=== PATIENT | female | born 1995 | race African-American/Black ===

== ENCOUNTER 2019-02-06 19:43 | Emergency (ER) | payer MEDICAID ==
[~2019-02-06] VITALS: Ht 149.8 cm; Wt 90.7 kg
[~2019-02-06 19:43] MED LIST: MACROBID100 M1 PO; MOTRIN400 MG PO; NKHM; PRENATABS RX1 TAB PO; Zofran4 MG PO
[2019-02-06] MEDS ORDERED: ZYRTEC10 MG PO (22:20)
[2019-02-06] MEDS ORDERED: MUCINEX ER600 MG PO (22:20)
== END 2019-02-06 22:10 | disposition home or self-care (01) ==
LOC: ED 19:43
DX: B34.9 Viral infection, unspecified (principal); H92.09 Otalgia, unspecified ear